=== PATIENT | female | born 1975 | race Caucasian/White ===

== ENCOUNTER 2019-07-13 11:30 | Emergency (ER) | payer OTHER ==
[~2019-07-13] VITALS: Ht 162.6 cm; Wt 82.0 kg
[2019-07-13 12:09] LABS: BASO % 0.2 % (0.0-1.0); EOS # 0.1 10^3/uL (0.0-0.5); EOS % 1.3 % (0.0-3.0); HEMATOCRIT 42.6 % (36.0-47.0); HEMOGLOBIN 14.3 g/dl (12.0-15.5); LYMPH # 1.7 10^3/uL (1.5-5.0); LYMPH % 16.9 % (24.0-44.0); MEAN CORPUSCULAR HEMOGLOBIN 29.5 pg (27.0-33.0); MEAN CORPUSCULAR HGB CONC 33.6 g/dl (32.0-36.5); MONO # 0.6 10^3/uL (0.0-0.8); MONO % 6.1 % (0.0-5.0); NEUTROPHILS # 7.8 10^3/uL (1.5-8.5); PLATELET COUNT, AUTOMATED 344 10^3/uL (150-450); RED BLOOD COUNT 4.84 10^6/uL (4.00-5.40); WHITE BLOOD COUNT 10.3 10^3/uL (4.0-10.0)
[2019-07-13] MEDS ORDERED: NS 1,000 ML IV ONE (12:15)
[2019-07-13] MEDS ORDERED: KETOROLAC 30 MG/ML VIAL (J1885) IV ONE (12:15)
[2019-07-13] MEDS ORDERED: ONDANSETRON 4MG/2ML VIAL (J2405) IV ONE (12:15)
[2019-07-13 12:19] LABS: APPEARANCE, URINE CLOUDY (CLEAR); BACTERIA, URINE AUTO NEGATIVE (NEGATIVE); BILIRUBIN, URINE AUTO NEGATIVE (NEGATIVE); BLOOD, URINE BLOOD 3+ (NEGATIVE); COLOR, URINE YELLOW (YELLOW); GLUCOSE, URINE (UA) AUTO NEGATIVE (NEGATIVE); KETONE, URINE AUTO TRACE mg/dL (NEGATIVE); LEUKOCYTE ESTERASE, URINE AUTO NEGATIVE (NEGATIVE); MUCUS, URINE SMALL (NEGATIVE); NITRITE, URINE AUTO NEGATIVE (NEGATIVE); PROTEIN, URINE AUTO 1+ mg/dL (NEGATIVE); RBC, URINE AUTO TNTC /HPF (0-3); SPECIFIC GRAVITY URINE AUTO 1.026 (1.002-1.035); SQUAMOUS EPITHELIAL CELL UR AU 24 /HPF (0-6); UROBILINOGEN, URINE AUTO 0.2 mg/dL (0.0-2.0); WBC, URINE AUTO 47 /HPF (0-3)
[2019-07-13 12:30] LABS: ALBUMIN 3.6 GM/DL (3.2-5.2); ALT/SGPT 37 U/L (12-78); BILIRUBIN,DIRECT < 0.1 MG/DL (0.0-0.2); BILIRUBIN,TOTAL 0.2 MG/DL (0.2-1.0); LIPASE 172 U/L (73-393)
[2019-07-13] MEDS ORDERED: FLUO20CA20 PO (12:34)
[2019-07-13] MEDS ORDERED: TOPI100T9 PO (12:34)
[2019-07-13] MEDS ORDERED: IBUP-1022 PO (12:34)
[2019-07-13] MEDS ORDERED: QUET200T2 PO (12:34)
[2019-07-13] MEDS ORDERED: MINO0.1C PO (12:34)
[2019-07-13] MEDS ORDERED: OMEP40CA97 PO (12:34)
[2019-07-13] MEDS ORDERED: CETI5SOL3 PO (12:34)
[2019-07-13] MEDS ORDERED: BACL1TAB9 PO (12:34)
--- NOTE | 2019-07-13 13:20 | REP ---
CT of the abdomen and pelvis without IV and oral contrast for left flank pain and history of renal calculi: There is a 5 mm calculus in the distal left ureter approximately 2 cm from the bladder. There is a second calcification posterolateral to the bladder on the left slightly inferomedial to this ureteral calculus. The second calculus is likely a phlebolith . There is a phlebolith posterior to the bladder on the right. There are no bladder calculi. There are no renal calculi on the right on the left. There is no perinephric stranding on the right on the left. There is no right ureteral calculus. The visualized lung osuna are unremarkable. The unenhanced hepatic parenchyma, gallbladder, pancreas, spleen, adrenals, abdominal aorta, bowel and mesentery are unremarkable. There is no ascites, adenopathy or mass. Pelvis: The appendix is unremarkable. There is no ascites or adenopathy. The pelvic bowel loops are unremarkable. Impression: There is a 5 mm calculus in the distal left ureter approximate 1-2 cm from the bladder. In addition there is a phlebolith posterior to the bladder on the right and a phlebolith posterior to the bladder on the left. There is mild left hydronephrosis. There are no renal calculi on the right on the left. There is no right ureteral calculus. Electronically Signed by Darryl Chavez MD 07/13/2019 01:12 P
[2019-07-13] MEDS ORDERED: FLOM0.4C39 PO (14:35)
[2019-07-13] MEDS ORDERED: KETO10TAB PO (14:35)
[2019-07-13 14:43] VITALS: BP 124/88
== END 2019-07-13 14:46 | disposition home or self-care (01) ==
LOC: M ED 11:30
DX: R10.9 Unspecified abdominal pain (principal); N20.1 Calculus of ureter; N13.30 Unspecified hydronephrosis; Z87.442 Personal history of urinary calculi; F17.200 Nicotine dependence, unspecified, uncomplicated; Z79.899 Other long term (current) drug therapy; Z88.8 Allergy status to other drugs, medicaments and biological substances
CPT/HCPCS: 74176; 80047; 80076; 81001; 83690; 85025; 96361; 96374; 96375; 99284; J1885; J2405

== ENCOUNTER → 2022-12-23 | Outpatient (CLI) | payer MEDICARE ==
[~2022-12-23] MED LIST: BACL1TAB9 PO; CETI5SOL3 PO; FLOM0.4C39 PO; FLUO-96 PO; IBUP-1022 PO; KETO10TAB PO; MINO0.1C PO; OMEP40CA4 PO; QUET200T2 PO; TOPI100T9 PO
== END ==
LOC: M PLAIMG 13:03
PROVIDERS: ATTEND Physician Assistant
DX: J32.8 Other chronic sinusitis (principal)

== ENCOUNTER → 2025-01-19 | Outpatient (CLI) | payer MEDICAID, MEDICARE ==
[~2025-01-19] MED LIST changes: +CLONI1TA PO; -FLOM0.4C39 PO; +FLUO40CA PO; -IBUP-1022 PO; +IBUP600T42 PO; +LEVOTAB10 PO; +MINO50CA3 PO; +TAMS-18 PO; +TOPA50TA8 PO; +TOPI-257 PO; -TOPI100T9 PO; +VITA100093 PO
== END ==
LOC: M RAD 13:43
PROVIDERS: ATTEND Physician Assistant
DX: J32.8 Other chronic sinusitis (principal)